=== PATIENT | female | born 1965 | race Caucasian/White ===

== ENCOUNTER 2016-08-31 20:36 | Observation (INO) | payer MEDICAID ==
[2016-08-31] MEDS ORDERED: NS 1000 ML 1,000 ML IV SCH (21:00)
[2016-08-31 21:37] LABS: BASOPHILS % (AUTO) 0.7 % (0.2-1.0); EOSINOPHILS # (AUTO) 0.2 x10^3/uL (0.0-0.2); EOSINOPHILS % (AUTO) 2.4 % (0.9-2.9); HEMATOCRIT 34.4 % (36.0-47.0); HEMOGLOBIN 11.5 g/dL (12.0-16.0); MEAN CORPUSCULAR HEMOGLOBIN 26.7 pg (27.0-34.0); MEAN CORPUSCULAR HGB CONC 33.3 g/dL (33.0-35.0); MONOCYTES # (AUTO) 0.4 x10^3/uL (0.3-0.8); MONOCYTES % (AUTO) 5.8 % (0.0-13.0); NEUTROPHILS % (AUTO) 61.1 % (42.0-75.0); PLATELET COUNT 141 X10^3/uL (150.0-450.0); RED CELL DISTRIBUTION WIDTH 13.8 % (11.6-16.5); WHITE BLOOD COUNT 6.6 X10^3/uL (3.6-10.0)
[2016-08-31 21:52] LABS: ALANINE AMINOTRANSFERASE 36 Units/L (12-78); ALBUMIN 3.7 g/dL (3.4-5.0); ALKALINE PHOSPHATASE 97 Units/L (46-116); ASPARTATE AMINO TRANSFERASE 18 Units/L (15-37); BLOOD UREA NITROGEN 17 mg/dL (7-18); CALCIUM 8.8 mg/dL (8.5-10.1); CARBON DIOXIDE 28.3 mmol/L (21-32); CHLORIDE 105 mmol/L (98-107); COR NA(FOR HYPERGLY) 148 mmol/L (136-145); CREATINE KINASE 174 Units/L (26-192); CREATINE KINASE MB 1.7 ng/mL (0-4.0); CREATININE 1.27 mg/dL (0.55-1.02); GLUCOSE 343 mg/dL (65-99); SODIUM 142 mmol/L (136-145); TOTAL PROTEIN 7.1 g/dL (6.4-8.2); TROPONIN I < 0.02 ng/mL (0-1.5); eGFR BLACK RACES 58 (>60); eGFR NON BLACK RACES 48 (>60)
--- NOTE | 2016-08-31 22:12 | RAD ---
HISTORY: Chest pain Study: AP chest Comparison:NONE Findings: There is a dual lead pacemaker device present. 1 of the pacemaker leads appears slightly kinked just distal to the device generator although does not appear to be fracture. Correlate with device funct ion. Status post median sternotomy and CABG. The lungs are clear. No consolidation. There are no pleural effusions. The asad and cardiomediastinal silhouette appear normal. IMPRESSION: 1. No radiographic evidence of an acute cardiopulmonary process. 2. Dual lead pacemaker device is present. 1 of the leads appears to be slightly kinked just distal t o the device generator, however, does not appear to be fractured. Please correlate with device funct ion. Reported By:
[2016-08-31 22:46] VITALS: BMI 31.3
[2016-09-01 00:28] LABS: BILIRUBIN,URINE NEGATIVE (NEGATIVE); BLOOD/HEMOGLOBIN,URINE NEGATIVE (NEGATIVE); GLUCOSE, URINE 4+ (NEGATIVE); KETONES,URINE NEGATIVE (NEGATIVE); LEUKOCYTE ESTERASE ,URINE 3+ (NEGATIVE); NITRITES,URINE POSITIVE (NEGATIVE); PROTEIN,URINE NEGATIVE (NEGATIVE); UROBILINOGEN,URINE NORMAL (NORMAL)
[2016-09-01 00:40] LABS: APPEARANCE,URINE CLOUDY (CLEAR); BACTERIA,URINE 1+ /HPF (NEGATIVE); COLOR,URINE YELLOW (YELLOW); RBC,URINE NONE SEEN /HPF (NEGATIVE); SQUAMOUS EPITHELIAL CELL,UR RARE /HPF (NEGATIVE)
[2016-09-01] MEDS ORDERED: NITROSTAT SL PRN (01:16)
[2016-09-01] MEDS: PERCOCET TAB 5/325 MG PO PRN ×2 (01:21→07:35)
[2016-09-01 01:24] LABS: CKMB % 0.7 % (<4); CREATINE KINASE 159 Units/L (26-192); CREATINE KINASE MB 1.1 ng/mL (0-4.0); TROPONIN I < 0.02 ng/mL (0-1.5)
[2016-09-01 06:38] LABS: CHOL/HDL RATIO 4.2 (0.0-5.0); CHOLESTEROL 177 mg/dL (0-200); CKMB % 0.7 % (<4); CREATINE KINASE 151 Units/L (26-192); CREATINE KINASE MB 1.1 ng/mL (0-4.0); HDL CHOLESTEROL 42 mg/dL (40-60); TRIGLYCERIDES 251 mg/dL (0-150); TROPONIN I < 0.02 ng/mL (0-1.5)
[2016-09-01 07:40] VITALS: BP 153/63
--- NOTE | 2016-09-01 11:18 | DR.H&P ---
H&P - History & Physical for Day of: H&P Date: 08/31/16 - Chief Complaint Chief Complaint: Chest pain - Allergies Allergies/Adverse Reactions: Allergies Allergy/AdvReac Type Severity Reaction Status Date / Time Acetaminophen [From Lortab] Allergy Verified 08/31/16 21:41 Codeine Allergy Verified 08/31/16 21:41 Hydrocodone Allergy Verified 08/31/16 21:41 Ketoprofen Allergy Verified 08/31/16 21:41 Meperidine [From Demerol HCl] Allergy Verified 08/31/16 21:41 Penicillins Allergy Verified 08/31/16 21:41 Promethazine [From Phenergan] Allergy Verified 08/31/16 21:41 Solifenacin [From Vesicare] Allergy Verified 08/31/16 21:41 - History of Present Illness History of Present Illness: The patient is a 51-year-old white female who is a long-standing private patient with a history of multiple medical problems. The patient has a pre-existing history of coronary artery disease and previous stent placement as well as a history of chronic, intermittent atypical chest pain. Patient also has a history of lumbar disc disease and has tentatively been scheduled for lumbar spine surgery on 09/03/2016, which is subsequently being postponed. Patient is subsequently being admitted due to intermittent chest pain with tentative plans to transfer the patient to Dr. Kristy fowler at [facility] in [facility] for further invasive workup. - Past Medical History Past Medical History: COPD, Coronary Artery Disease, Diabetes, Dyslipidemia, GERD, Headaches - Past Surgical History Surgical History: Appendectomy, Cholecystectomy, Hysterectomy, Other - Family History Family Medical History: Diabetes Mellitus, Cancer, Hypertension - Social History Does patient currently use any type of tobacco product: No Have you used tobacco products in the last 12 months: No Type of Tobacco Use: None Does any household member use tobacco: Yes Alcohol Use: None Drug Use: None - Medications Home Medications: Albuterol Sulfate [Proventil HFA Inhaler 6.7 gm] 2 inh IN Q4H PRN 08/31/16 [ History Confirmed 08/31/16] Alprazolam [Xanax] 0.5 mg PO DAILY PRN 08/31/16 [History Confirmed 08/31/16] Aspirin [Aspirin 81 mg Chewtab] 81 mg PO DAILY 08/31/16 [History Confirmed 08/31] Atorvastatin Calcium [Lipitor Tab 40 mg] 1.5 tabs PO HS 08/31/16 [History Confirmed 08/31/16] Carvedilol [Coreg Tab 3.125 mg] 3.125 mg PO BID 08/31/16 [History Confirmed ] Cetirizine HCl [Zyrtec Allergy] 10 mg PO DAILY 08/31/16 [History Confirmed 08/31] Clopidogrel Bisulfate [Plavix] 75 mg PO DAILY 08/31/16 [History Confirmed ] Cyclobenzaprine HCl [FLEXERIL 10 MG *] 10 mg PO TID PRN 08/31/16 [History Confirmed 08/31/16] Diphenhydramine HCl [BENADRYL CAP 50 MG *] 50 mg PO HS PRN 08/31/16 [History Confirmed 08/31/16] Docusate Sodium [Colace] 200 mg PO HS 08/31/16 [History Confirmed 08/31/16] Famotidine [Famotidine 20 mg] 20 mg PO DAILY 08/31/16 [History Confirmed ] Fenofibrate [Tricor Tab 145 mg] 145 mg PO DAILY 08/31/16 [History Confirmed ] Folic Acid [Folic Acid Tab 1 mg] 1 mg PO DAILY 08/31/16 [History Confirmed 08/31] Furosemide [Lasix] 40 mg PO QAM 08/31/16 [History Confirmed 08/31/16] Gabapentin [Neurontin Cap 300 mg] 300 mg PO TID 08/31/16 [History Confirmed ] Glyburide [DIABETA 5 MG *] 1 tab PO BID 08/31/16 [History Confirmed 08/31/16] Hydroxyzine Pamoate 25 mg PO Q6H PRN 08/31/16 [History Confirmed 08/31/16] Insulin Glargine (Lantus) [LANTUS INSULIN 10 ML VIAL *] 20 units SC QAM [History Confirmed 08/31/16] Insulin Glargine (Lantus) [LANTUS INSULIN 10 ML VIAL *] 25 units SC QAM [History Confirmed 08/31/16] Insulin Lispro (Human) [Humalog] 5 unit SC AC 08/31/16 [History Confirmed ] Isosorbide Mononitrate 0.5 tab PO BID 08/31/16 [History Confirmed 08/31/16] Linagliptin [Tradjenta] 5 mg PO DAILY 08/31/16 [History Confirmed 08/31/16] Losartan Potassium 25 mg PO DAILY 08/31/16 [History Confirmed 08/31/16] Meclizine HCl [Meclizine 25] 25 mg PO TID PRN 08/31/16 [History Confirmed ] Metformin HCl [Glucophage] 500 mg PO BID 08/31/16 [History Confirmed 08/31/16] Misc Home Med [Patient's Home Medication (Non-PO)] 1 ea PO DAILY 08/31/16 [ History Confirmed 08/31/16] Misc Home Med [Patient's Home Medication (Non-PO)] 2 inh INH DAILY 08/31/16 [ History Confirmed 08/31/16] Misc Home Med [Patient's Home Medication] 1 ea PO Q6H PRN 08/31/16 [History Confirmed 08/31/16] Montelukast Sodium [Singulair] 10 mg PO HS 08/31/16 [History Confirmed 08/31/16] Nitroglycerin Sublingual [NITROSTAT SUBLING TAB 0.4 MG *] 0.4 mg SL PRN PRN [History Confirmed 08/31/16] Ondansetron HCl [Zofran] 8 mg PO Q6HR PRN 08/31/16 [History Confirmed 08/31/16] Ondansetron [Zofran Odt] 4 mg PO Q6H PRN 08/31/16 [History Confirmed 08/31/16] Oxycodone/Acet 5 mg/325 mg [PERCOCET 5/325 MG *] 1 tab PO Q12H PRN 08/31/16 [ History Confirmed 08/31/16] Pantoprazole Sodium 40 mg [Protonix Tab 40 mg] 40 mg PO DAILY 08/31/16 [History Confirmed 08/31/16] - Review of Systems Constitutional: No Symptoms Reported Eyes: No Symptoms Reported ENT: No Symptoms Reported Respiratory: No Symptoms Reported Cardiovascular: See HPI Gastrointestinal: No Symptoms Reported Genitourinary: No Symptoms Reported Musculoskeletal: No Symptoms Reported Skin: No Symptoms Reported Neurological: No Symptoms Reported - Physical Exam Vital Signs: Temperature 98.5 F Pulse Rate [Apical] 61 Respiratory Rate 13 Blood Pressure [Left Arm] 153/63 O2 Sat by Pulse Oximetry 98 Oriented: Normal Eyes: Normal Ear: Normal Nose: Normal Throat: Normal Respiratory: Clear Throughout Cardiovascular: Normal : Normal Auscultation: Bowel Sounds: Normal Palpation: Normal Tenderness: Normal Skin: Normal Musculoskeletal: Normal Psychiatric: Normal Mood Description: Calm Affect: Normal Speech Pattern: Clear - Assessment/Plan (1) Chest pain Qualifiers: Chest pain type: C Ischemic chest pain type: unstable angina pectoris Qualified Code(s): I20.0 - Unstable angina Status: Acute Plan: 1. Admit for further workup. 2. Telemetry. 3. O2 at 2 L/m per nasal cannula. 4. Chest x-ray. 5. CMP and CBC. 6. UA C&S. 7. EKG every 3 hours 3 then every morning 2. 8. Troponin every 3 hours 3. 9. Continue home medications. 10. Tentatively plan to transfer to Dr. Wagner service at [facility] in a.m. for further workup (2) Coronary artery disease Qualifiers: Coronary Disease-Associated Artery/Lesion type: C [place] vs. transplanted heart: N Associated angina: A Status: Acute Plan: As above (3) Hypertension Qualifiers: Hypertension type: H Status: Acute Plan: As above (4) Diabetes mellitus type II, controlled Qualifiers: Diabetes mellitus complication status: D Diabetes mellitus complication detail: D Diabetic retinopathy severity: D Proliferative retinopathy type: P Diabetes mellitus macular edema: D Diabetes mellitus long goods drier insulin use : D Laterality: L Chronic kidney disease stage: C Status: Acute Plan: As above (5) Chronic low back pain Qualifiers: Back pain laterality: B Sciatica presence: S Sciatica laterality: S Status: Acute Plan: As above
--- NOTE | 2016-09-01 11:28 | PCM.DCPLAN ---
Discharge Summary - Admission Date Date of Admission: 08/31/16 - Discharge Date Discharge Date: 09/01/16 - Admission Diagnoses (1) Chest pain Status: Acute (2) Coronary artery disease Status: Acute (3) Hypertension Status: Acute (4) Diabetes mellitus type II, controlled Status: Acute (5) Chronic low back pain Status: Acute - Discharge Diagnoses Discharge Diagnosis: Same - Discharge Medications Discharge Medications: Albuterol Sulfate [Proventil HFA Inhaler 6.7 gm] 2 inh IN Q4H PRN 08/31/16 [ History] Alprazolam [Xanax] 0.5 mg PO DAILY PRN 08/31/16 [History] Aspirin [Aspirin 81 mg Chewtab] 81 mg PO DAILY 08/31/16 [History] Atorvastatin Calcium [Lipitor Tab 40 mg] 1.5 tabs PO HS 08/31/16 [History] Carvedilol [Coreg Tab 3.125 mg] 3.125 mg PO BID 08/31/16 [History] Cetirizine HCl [Zyrtec Allergy] 10 mg PO DAILY 08/31/16 [History] Clopidogrel Bisulfate [Plavix] 75 mg PO DAILY 08/31/16 [History] Cyclobenzaprine HCl [FLEXERIL 10 MG *] 10 mg PO TID PRN 08/31/16 [History] Diphenhydramine HCl [BENADRYL CAP 50 MG *] 50 mg PO HS PRN 08/31/16 [History] Docusate Sodium [Colace] 200 mg PO HS 08/31/16 [History] Famotidine [Famotidine 20 mg] 20 mg PO DAILY 08/31/16 [History] Fenofibrate [Tricor Tab 145 mg] 145 mg PO DAILY 08/31/16 [History] Folic Acid [Folic Acid Tab 1 mg] 1 mg PO DAILY 08/31/16 [History] Furosemide [Lasix] 40 mg PO QAM 08/31/16 [History] Gabapentin [Neurontin Cap 300 mg] 300 mg PO TID 08/31/16 [History] Glyburide [DIABETA 5 MG *] 1 tab PO BID 08/31/16 [History] Hydroxyzine Pamoate 25 mg PO Q6H PRN 08/31/16 [History] Insulin Glargine (Lantus) [LANTUS INSULIN 10 ML VIAL *] 20 units SC QAM [History] Insulin Glargine (Lantus) [LANTUS INSULIN 10 ML VIAL *] 25 units SC QAM [History] Insulin Lispro (Human) [Humalog] 5 unit SC AC 08/31/16 [History] Isosorbide Mononitrate 0.5 tab PO BID 08/31/16 [History] Linagliptin [Tradjenta] 5 mg PO DAILY 08/31/16 [History] Losartan Potassium 25 mg PO DAILY 08/31/16 [History] Meclizine HCl [Meclizine 25] 25 mg PO TID PRN 08/31/16 [History] Metformin HCl [Glucophage] 500 mg PO BID 08/31/16 [History] Misc Home Med [Patient's Home Medication (Non-PO)] 1 ea PO DAILY 08/31/16 [ History] Misc Home Med [Patient's Home Medication (Non-PO)] 2 inh INH DAILY 08/31/16 [ History] Misc Home Med [Patient's Home Medication] 1 ea PO Q6H PRN 08/31/16 [History] Montelukast Sodium [Singulair] 10 mg PO HS 08/31/16 [History] Nitroglycerin Sublingual [NITROSTAT SUBLING TAB 0.4 MG *] 0.4 mg SL PRN PRN [History] Ondansetron HCl [Zofran] 8 mg PO Q6HR PRN 08/31/16 [History] Ondansetron [Zofran Odt] 4 mg PO Q6H PRN 08/31/16 [History] Oxycodone/Acet 5 mg/325 mg [PERCOCET 5/325 MG *] 1 tab PO Q12H PRN 08/31/16 [ History] Pantoprazole Sodium 40 mg [Protonix Tab 40 mg] 40 mg PO DAILY 08/31/16 [History] - Hospital Course Vital Signs: Temperature 98.5 F Pulse Rate [Apical] 61 Respiratory Rate 13 Blood Pressure [Left Arm] 153/63 O2 Sat by Pulse Oximetry 98 Latest Lab Results: Laboratory Last Values WBC 6.6 X10^3/uL (3.6-10.0) 08/31/16 21:20 RBC 4.30 X10^6/uL (3.5-5.4) 08/31/16 21:20 Hgb 11.5 g/dL (12.0-16.0) L 08/31/16 21:20 Hct 34.4 % (36.0-47.0) L 08/31/16 21:20 MCV 80.0 fL (80.0-100.0) 08/31/16 21:20 MCH 26.7 pg (27.0-34.0) L 08/31/16 21:20 MCHC 33.3 g/dL (33.0-35.0) 08/31/16 21:20 RDW 13.8 % (11.6-16.5) 08/31/16 21:20 Plt Count 141 X10^3/uL (150.0-450.0) L 08/31/16 21:20 MPV 9.0 fL (7.4-11.0) 08/31/16 21:20 Neut % 61.1 % (42.0-75.0) 08/31/16 21:20 Lymph % 30.0 % (21.0-51.0) 08/31/16 21:20 [place] % 5.8 % (0.0-13.0) 08/31/16 21:20 Eos % 2.4 % (0.9-2.9) 08/31/16 21:20 Baso % 0.7 % (0.2-1.0) 08/31/16 21:20 Neut # 4.0 x10^3/uL (2.2-4.8) 08/31/16 21:20 Lymph # 2.0 X10^3/uL (1.3-2.9) 08/31/16 21:20 [place] # 0.4 x10^3/uL (0.3-0.8) 08/31/16 21:20 Eos # 0.2 x10^3/uL (0.0-0.2) 08/31/16 21:20 Baso # 0.0 X10^3/uL (0.0-0.1) 08/31/16 21:20 Absolute Nucleated RBC 0.0 /100WBC 08/31/16 21:20 Sodium 142 mmol/L (136-145) 08/31/16 21:20 Corrected Sodium 148 mmol/L (136-145) H 08/31/16 21:20 Potassium 4.0 mmol/L (3.5-5.1) 08/31/16 21:20 Chloride 105 mmol/L (98-107) 08/31/16 21:20 Carbon Dioxide 28.3 mmol/L (21-32) 08/31/16 21:20 BUN 17 mg/dL (7-18) 08/31/16 21:20 Creatinine 1.27 mg/dL (0.55-1.02) H 08/31/16 21:20 Est GFR (MDRD) Af Amer 58 (>60) L 08/31/16 21:20 Est GFR (MDRD) Non-Af 48 (>60) L 08/31/16 21:20 Glucose 343 mg/dL (65-99) H 08/31/16 21:20 Calcium 8.8 mg/dL (8.5-10.1) 08/31/16 21:20 Corrected Calcium TNP 08/31/16 21:20 Total Bilirubin 0.50 mg/dL (0.2-1.0) 08/31/16 21:20 AST 18 Units/L (15-37) 08/31/16 21:20 ALT 36 Units/L (12-78) 08/31/16 21:20 Alkaline Phosphatase 97 Units/L (46-116) 08/31/16 21:20 Creatine Kinase 151 Units/L (26-192) 09/01/16 05:40 CK-MB (CK-2) 1.1 ng/mL (0-4.0) 09/01/16 05:40 CK/CKMB % Calc 0.7 % (<4) 09/01/16 05:40 Troponin I < 0.02 ng/mL (0-1.5) 09/01/16 05:40 Total Protein 7.1 g/dL (6.4-8.2) 08/31/16 21:20 Albumin 3.7 g/dL (3.4-5.0) 08/31/16 21:20 Globulin 3.4 g/dL (2.5-4.5) 08/31/16 21:20 Albumin/Globulin Ratio 1.1 Ratio (1.1-2.1) 08/31/16 21:20 Triglycerides 251 mg/dL (0-150) H 09/01/16 05:40 Cholesterol 177 mg/dL (0-200) 09/01/16 05:40 LDL Cholesterol, Calc 85 mg/dL (0-100) 09/01/16 05:40 HDL Cholesterol 42 mg/dL (40-60) 09/01/16 05:40 Cholesterol/HDL Ratio 4.2 (0.0-5.0) 09/01/16 05:40 Specimen Type Clean catch urine 09/01/16 00:10 Urine Color Yellow (YELLOW) 09/01/16 00:10 Urine Appearance Cloudy (CLEAR) 09/01/16 00:10 Urine pH 7.0 (5.0 - 8.0) 09/01/16 00:10 Ur Specific [place] 1.010 (1.000-1.030) 09/01/16 00:10 Urine Protein Negative (NEGATIVE) 09/01/16 00:10 Urine Glucose (UA) 4+ (NEGATIVE) 09/01/16 00:10 Urine Ketones Negative (NEGATIVE) 09/01/16 00:10 Urine Occult Blood Negative (NEGATIVE) 09/01/16 00:10 Urine Nitrite Positive (NEGATIVE) 09/01/16 00:10 Urine Bilirubin Negative (NEGATIVE) 09/01/16 00:10 Urine Urobilinogen Normal (NORMAL) 09/01/16 00:10 Ur Leukocyte Esterase 3+ (NEGATIVE) 09/01/16 00:10 Urine RBC None seen /HPF (NEGATIVE) 09/01/16 00:10 Urine WBC 10-15 /HPF (NEGATIVE) 09/01/16 00:10 Ur Squamous Epith Cells Rare /HPF (NEGATIVE) 09/01/16 00:10 Urine Bacteria 1+ /HPF (NEGATIVE) 09/01/16 00:10 Ur Culture Indicated? Yes/culture set up 09/01/16 00:10 Hospital Course: As stated in history of present illness patient is a 51-year-old white female is a long-standing private patient in my practice with a history of pre- existing coronary artery disease and previous coronary artery stent placement. Patient has a history of lumbar disc disease and was tentatively scheduled for back surgery on 09/03/2016 which is subsequently being postponed due to the need for further cardiac workup. Patient was subsequently admitted to [facility] on the evening of 08/31/2016 for further workup and tentative plans to transfer the patient to Dr. Wagner service at [facility] for further invasive workup. The patient's serial EKGs revealed nonspecific STT wave changes. Patient's cardiac enzymes were negative. Patient was subsequently transferred to [facility] on the morning of 09/01/2016 for further workup. - Discharge Plan Disposition: [facility]FER [facility] Condition: Stable - Follow ups/Referrals Follow ups/Referrals: KEN RODRIGUEZ [Primary Care Provider] - - Instructions
== END 2016-09-01 07:35 | disposition short-term general hospital (02) ==
LOC: ICU 20:36
PROVIDERS: ADMIT Internal Medicine; ATTEND Internal Medicine
DX: R07.89 Other chest pain (principal); I25.10 Atherosclerotic heart disease of native coronary artery without angina pectoris; J44.9 Chronic obstructive pulmonary disease, unspecified; E11.65 Type 2 diabetes mellitus with hyperglycemia; E78.2 Mixed hyperlipidemia; K21.9 Gastro-esophageal reflux disease without esophagitis; I10 Essential (primary) hypertension; M54.5 Low back pain; R94.31 Abnormal electrocardiogram [ECG] [EKG]; B95.62 Methicillin resistant Staphylococcus aureus infection as the cause of diseases classified elsewhere; R94.4 Abnormal results of kidney function studies
CPT/HCPCS: 36415; 71010; 80053; 80061; 81001; 82550; 82553; 84484; 85025; 87086; 87088; 87186; 93005; 93010; A4222; G0378